=== PATIENT | female | born 1985 | race Caucasian/White ===

== ENCOUNTER → 2017-02-07 | Outpatient (CLI) | payer OTHER ==
[2016-05-02 17:27] VITALS: BP 116/84
--- NOTE | 2017-02-07 08:48 | RAD ---
Examination: Left shoulder, three views History: Recent fall Findings: There is no evidence for fracture, dislocation or joint space deformity. The humeral head i s in normal position. Impression: Within normal limits. Reported By:
== END ==
LOC: RAD 08:18
PROVIDERS: ATTEND Obstetrics & Gynecology Obstetrics
DX: M25.512 Pain in left shoulder (principal)
CPT/HCPCS: 73030

== ENCOUNTER → 2017-02-21 | Outpatient (CLI) | payer OTHER ==
[2016-05-02 17:27] VITALS: BP 116/84
--- NOTE | 2017-02-21 15:04 | MRI ---
STUDY: MRI OF THE CERVICAL SPINE HISTORY: Cervicalgia. Pain extending from neck through the left shoulder. Comparison: None. Technique: An MRI of the cervical spine including sagittal T1, T2, and T2 STIR, axial T1, and T2 FSE images was performed using standard departmental protocol. Findings: Sagittal images: Visualized portions of the posterior fossa are within normal limits. The craniocervi sharifa junction is unremarkable. There is straightening of the usual cervical lordosis. Vertebral body heights and alignment are within normal limits. Marrow signal is age-appropriate. How ever, there is a focus of T2 hyperintensity that persists on T2 STIR images within the posterior aspe ct of the T2 vertebral body. There is no significant prevertebral soft tissue swelling. The surrounding paraspinal soft tissues ar e unremarkable. There is no evidence of cord compression. No intrinsic signal abnormalities are ident ified in the spinal cord itself. Axial images: C2 -- C3: Normal. C3 -- C4: Normal. C4 -- C5: There is a small posterior disc osteophyte complex. The central canal and neural foramina a re adequate. C5 -- C6: There is a shallow disc osteophyte complex and bilateral uncovertebral osteophyte formation . The central canal and neural foramina are adequate. C6 -- C7: There is a posterior disc osteophyte complex and mild bilateral uncovertebral osteophyte fo rmation. The central canal and neural foramina are adequate. C7 -- T1: Normal. IMPRESSION: 1. Straightening of the usual cervical lordosis. This finding may be positional or secondary to muscl e spasm. Clinical correlation is recommended. 2. Mild multilevel cervical spondylosis. 3. Focus of T2 hyperintensity in the T2 vertebral body. Differential considerations would include hunter plastic process such as bone metastasis or myeloma. An atypical hemangioma with marrow edema may also have this appearance. Clinical correlation is required. Reported By:
== END ==
LOC: RAD 13:35
PROVIDERS: ATTEND Obstetrics & Gynecology Obstetrics
DX: M54.12 Radiculopathy, cervical region (principal)
CPT/HCPCS: 72141